=== PATIENT | male | born 2000 | race Caucasian/White ===

== ENCOUNTER 2024-11-19 22:49 | Emergency (ER) | payer OTHER, SELFPAY ==
[2024-11-19 22:52] VITALS: BP 155/95
[2024-11-19 23:15] LABS: Urine Albumin Negative (Neg - Trace); Urine Bilirubin Negative (Negative); Urine Character Clear (Clear); Urine Color Yellow; Urine Glucose Negative (Negative); Urine Ketone Negative (Negative); Urine Leukocyte Negative (Negative); Urine Nitrite Negative (Negative); Urine Occult Blood Negative (Negative); Urine Urobilinogen Negative (Neg - 1+)
[2024-11-20 01:03] VITALS: BP 139/76
--- NOTE | 2024-11-20 01:07 | EDRN ---
Pt says he demo'd a house today and his simba text him at [id number] to pick him up. Pt went out the front door to pick him up and forgot the porch was no longer there so he fell backwards hitting L back/chest on door frame. No head injury. Pt says he
'laid there wheezing for a little bit.' Pt did not take any pain medication 'I don't like to take anything.' Pt declines ice for injury. No sob. Pt requesting blood be drawn to prove he was not drinking - informed to ask the ADVERTISING OPERATIONS MANAGER when she examines
him.
--- NOTE | 2024-11-20 01:12 | ED.MUSCINJ ---
HPI-Injury
General
Chief Complaint: Fall
Source: patient
Exam Limitations: none
Time Seen by Provider: 11/20/24 01:00
Nursing documentation reviewed up to this point in time: agreed with
History of Present Illness-Injury
Is this injury a work related problem?: No
Is pt an associate of [facility]/[place]?: No
Initial Injury comments:
Patient states he took out his front porch today. Tonight he forgot porch was missing and when he went out the front door he fell back hitting left posterior ribs on door. Abrasion noted at site. Complains of pain to left posterior ribs. Brought
self to ED for eval.
Past History
Past History
ED Past Medical History: None
ED Past Surgical History: None
Review of Systems
Review of Systems
Constitutional: Reports no symptoms
EENT: Reports no symptoms
Respiratory: Reports no symptoms
Cardiac: Reports no symptoms
ABD/GI: Reports no symptoms
: Reports no symptoms
Musculoskeletal: Reports joint pain (pain to left posterior ribs)
Skin: Reports other (abrasion x 2 to left posterior chest wall)
Neurological: Reports no symptoms
Psychiatric: Reports no symptoms
Musculoskeletal Injury Exam
Musculoskeletal Injury Exam
Left Posterior Chest:
Pain with Movement?: Moderate
Tender to palpation?: Moderate
Soft tissue swelling?: None
External deformity and angulation?: None
Joint effusion?: None
Contusion?: Moderate
Hematoma-local bleeding into tissue?: None
Strain- Sprain- Tear (Connective tissue injury)?: None
Crepitus with movement?: No
Joint instability?: No
Malalignment/deformity?: No
Range of motion: Limited
Distal skin color and temperature: normal-warm & good color
Capillary Refill: normal
Normal distal neurovascular exam?: Yes
Phy Exam
General Physical Exam
General Presentation: well appearing and no apparent distress
General age: appears stated age
General Skin: warm and dry
General Habitus: normal
General Mental: alert
Cardiovascular Exam
Cardiovascular Exam: regular rate/rhythm and no edema
Pulmonary Exam
Pulmonary Exam: no respiratory distress
Chest Wall: Left posterior: tenderness
Gastrointestinal Exam
Gastrointestinal Exam: non tender, soft, no organomegaly, no pulsatile mass, non distended and no cva tenderness
Musculoskeletal Exam
Musculoskeletal Exam: neuro vasc intact
Skin Exam
Skin Exam: normal color, warm/dry and other (abrasion x2 left posterior chest wall)
Psychiatric Exam
Psychiatric Exam: normal mood/affect
Injury Course
Orders/Labs/Results
Orders:
Orders
11/19/24 22:56
Ribs, Left 3 View W/PA Chest CR [CR Ribs-left 3 Vw W/pa Chest] Urgent
Comment:
Reason For Exam: fall
11/19/24 23:01
Urinalysis Reflex To Culture Urgent
Date Specimen was Collected: 11/19/24
Time Specimen was Collected: 22:57
*Radiology
Radiology exam reviewed: radiology read reviewed
*Pulse Oximetry
Patient hypoxic: no
*Critical Care Note
Total Time (30-74mins, 75-104mins- exclusive of procedures): Not Applicable
ED Attending Note
-
Portions of this chart may have been created with voice recognition software.� Occasional wrong word or��sound alike� substitutions may have occurred due to the inherent limitations of voice recognition software.
Discharge Plan
Departure
Patient Disposition: Home (Routine Discharge)
Date of Disposition: 11/20/24
Time of Disposition: 01:09
Patient with high blood pressure during this ER visit?: No
Condition: Good
Covid-19: Not Applicable
Discharge Problem:
Back contusion, Abrasion
Instructions: Wound Care (DC), Contusion (DC), Abrasions - ED discharge instructions
Prescriptions:
No Action
No Current Medications
0
Activity Restrictions/Additional Instructions:
Follow up with your family doctor.
Interventions
Interventions:
*Risk Screen - Suicide Last Done: 11/19/24 22:52
*General Assessment Last Done: 11/19/24 22:52
*Neglect/Abuse Screening Last Done: 11/19/24 22:52
*ED COVID-19 Vaccine History Last Done: 11/19/24 22:52
ED-Musculoskeletal Assessment Last Done: 11/20/24 01:03
ED- Neurological Assessment Last Done: 11/20/24 01:03
ED-Skin Assessment Last Done: 11/20/24 01:03
Discharge Date and Time
Print Language: MALDIVIAN
== END 2024-11-20 01:29 | disposition home or self-care (01) ==
LOC: EMR 22:49
PROVIDERS: Emergency Medicine; EMERGENCY PHYSICIAN Student in an Organized Health Care Education/Training Program
DX: S20.229A Contusion of unspecified back wall of thorax, initial encounter (principal); S20.312A Abrasion of left front wall of thorax, initial encounter; W19.XXXA Unspecified fall, initial encounter
CPT/HCPCS: 99283; 71101; 81003